=== PATIENT | male | born 1955 | race Caucasian/White ===

== ENCOUNTER 2023-10-12 13:18 | Observation (INO) | payer MEDICARE, OTHER, SELFPAY ==
[2023-10-12] VITALS (14 sets, daily range): BP systolic 119–163; BP diastolic 55–105; PULSE 64–89; BMI 21.3
--- NOTE | 2023-10-12 08:38 | ED.GENMED ---
History of Present Illness
General
Chief Complaint: Fainting/Passed Out
Source: patient
Exam Limitations: none
Time Seen by Provider: 10/12/23 07:53
Nursing documentation reviewed up to this point in time: agreed with
Travel History
Have you had any contact with someone who has COVID-19?: No
Do you have any symptoms of coronavirus? Fever > 100 degrees, chills, cough, shortness of breath, sore throat, loss of taste or smell, muscle aches, or headache?: No
History of Present Illness
History of Present Illness:
68 yr old male with past medical history of prostate cancer kidney stones hypertension, occipital CVA presents to the ER for evaluation. Patient reports he is coming to the ER today because he has a history of passing out. He has had intermittent
issues of passing out for the past 6 weeks. He reports he could be standing up or sitting down but continues to have intermittent episodes. He does feel lightheaded prior to episodes and is aware he is going to pass out.
He last passed out last week.
He denies any recent fever or chills. Denies any black or dark stool. He denies any nausea vomiting.
He denies any associated chest pain but does feel short of breath with exertion. He denies any lower extremity swelling prior history of DVT PE.
Past History
Past History
ED Past Medical History: Cancer (Prostate), Psychiatric (PTSD) and Other (Kidney stones)
ED Past Surgical History: Urological (Prostatectomy)
Social History
Tobacco: Former smoker
Alcohol: Occasional
Personal:
Living: with family
Employment: Employed
Family History
Family History: Other (Noncontributory)
Review of Systems
Review of Systems
Allergies reviewed?: Yes
Other source history: family
All Other Systems: ROS reviewed and negative except as documented in HPI and ROS
Constitutional: Reports fatigue
EENT: Reports no symptoms
Respiratory: Reports no symptoms
Cardiac: Reports syncope; Denies chest pain or diaphoresis
ABD/GI: Reports no symptoms; Denies abdominal pain, nausea or vomiting
: Reports no symptoms
Musculoskeletal: Reports no symptoms
Neurological: Reports no symptoms; Denies dizzy, headache or numbness
Hematologic/Lymphatic: Reports no symptoms
Psychiatric: Reports no symptoms
Phy Exam
General Physical Exam
General Presentation: no apparent distress
General age: appears stated age
General Skin: warm and dry
General Habitus: normal
General Mental: alert
General Hydration: appears well hydrated
Cardiovascular Exam
Cardiovascular Exam: regular rate/rhythm, no murmur and normal peripheral pulses
Pulmonary Exam
Pulmonary Exam: lungs clear and no respiratory distress
Neurological Exam
Neurological Exam: alert and oriented x3
Musculoskeletal Exam
Musculoskeletal Exam: full ROM
Skin Exam
Skin Exam: normal color and warm/dry
Psychiatric Exam
Psychiatric Exam: normal mood/affect
Course
Orders/Labs/Results
Orders:
Orders
10/12/23 07:47
Electrocardiogram (*1) Urgent
Reason for Study: Syncope
EKG- Treatment ONCE
10/12/23 08:43
IV Insert/Care/Rem.- Treatment PRN
10/12/23 08:44
Cardiac Monitoring- Treatment ONCE
CR Chest - 2 Views Urgent
Comment:
Reason For Exam: syncope
10/12/23 08:48
Complete Blood Count/With Diff Urgent
Comprehensive Metabolic Panel Urgent
10/12/23 10:30
Orthostatic VS- Treatment ONCE
Abnormal Lab Results
10/12/23
08:48
RBC 3.88 L 10^6/uL
(4.70-6.10)
Hgb 12.9 L g/dL
(13.0-18.0)
Hct 37.3 L %
(39.0-52.0)
MCV 96.1 H fL
(80.0-94.0)
MCH 33.2 H pg
(27.0-31.0)
Absolute Lymphs (auto) 0.8 L 10^3/uL
(1.2-3.4)
Absolute Monos (auto) 0.7 H 10^3/uL
(0.1-0.6)
Lymphocytes % 14.0 L %
(20.5-51.1)
Monocytes % 12.3 H %
(1.7-9.3)
Chloride 109 H mmol/L
(98-107)
Creatinine 0.6 L mg/dL
(0.7-1.3)
Glucose 62 L mg/dl
(70-99)
Total Protein 5.9 L g/dl
(6.3-8.2)
10/12/23 08:48
10/12/23 08:48
Vital Signs
Initial and Last Documented VS:
Initial Vital Signs
Temp Pulse Resp BP Pulse Ox
98.1 F 81 16 143/91 99
10/12/23 07:44 10/12/23 07:44 10/12/23 07:44 10/12/23 07:44 10/12/23 07:44
Last Documented Vital Signs
Temp Pulse Resp BP Pulse Ox
98.1 F 68 13 140/74 99
10/12/23 07:44 10/12/23 09:45 10/12/23 09:30 10/12/23 09:11 10/12/23 07:44
Body Work Auto Trimmer consulted with Physician
Body Work Auto Trimmer consulted with physician?: Yes
Name of Physician Consulted: Lawrence
MDM/Problems Addressed
Differential Diagnosis Includes:
not limited to: anemia; syncope , arrhythmia less likely PE, possible CHF
MDM/Problems Addressed:
Patient is a 68-year-old male who presents with intermittent episodes of syncope for the past month. He does feel very fatigued and has had shortness of breath with exertion. Patient presents awake alert no acute distress he is asymptomatic now no
shortness of breath denies any lightheadedness. He has normal sinus rhythm nontachypneic nontachycardic nonhypoxic with normal white count. Patient appears pale however hemoglobin stable at 12.9, unremarkable electrolytes. nml chest
Patient had recent echo September 26 which showed normal LV size and systolic function ejection fraction of 60%.
Will admit for continued workup for syncope and dyspnea.
Chronic conditions affecting care:
Prostate cancer history of CVA
*Pulse Oximetry
Patient hypoxic: no
*EKG
Interpreted by ED Provider?: Yes
Interpretation: normal
Comparison EKG: no changes
Heart Rate: 75
Rate: normal
Rhythm: sinus
Ischemia: no ischemia
*Critical Care Note
Total Time (30-74mins, 75-104mins- exclusive of procedures): Not Applicable
ED Attending Note
-
Portions of this chart may have been created with voice recognition software.� Occasional wrong word or��sound alike� substitutions may have occurred due to the inherent limitations of voice recognition software.
Discharge Plan
Departure
Patient Disposition: Admit
Date of Disposition: 10/12/23
Time of Disposition: 11:21
Presentation/result/management discussed w/ accepting MD/DO: Hospitalist
Patient with high blood pressure during this ER visit?: Yes
Condition: Fair
Covid-19: Not Applicable
Discharge Problem:
Syncope, dyspnea
Prescriptions:
No Action
alprazolam 0.25 MG tablet
0.25 mg PO HS
aspirin 81 MG tablet,chewable
81 mg PO DAILY 0RF
meloxicam 15 MG tablet
15 mg PO DAILY
tamsulosin 0.4 MG capsule
0.4 mg PO DAILY Qty: 7 0RF
methen-m.blue-s.ygjq-bxvfj-hno [Uribel] 1 EACH capsule
1 cap PO QIDPRN PRN (Reason: urinary discomfort) Qty: 20 0RF
Referrals:
UNKNOWN - PT DOES,NOT KNOW [Family Provider] -
Interventions
Interventions:
*Risk Screen - Suicide Last Done: 10/12/23 09:46
*General Assessment Last Done: 10/12/23 09:46
*Neglect/Abuse Screening Last Done: 10/12/23 09:46
ED- Fall Risk Assessment Last Done: 10/12/23 10:05
*ED COVID-19 Vaccine History Last Done: 10/12/23 07:44
ED- Cardiac Assessment Last Done: 10/12/23 09:46
ED- Neurological Assessment Last Done: 10/12/23 09:46
[2023-10-12 08:56] LABS: % Basophils 0.7 % (0-2); % Immature Granulocytes 0.4 % (0-0.5); % Monocytes 12.3 % (1.7-9.3); % Neutrophils 69.6 % (42.2-75.2); Absolute Eosinophils 0.2 10^3/uL (0-0.7); Absolute Lymphocytes 0.8 10^3/uL (1.2-3.4); Absolute Monocytes 0.7 10^3/uL (0.1-0.6); Hematocrit 37.3 % (39.0-52.0); Hemoglobin 12.9 g/dL (13.0-18.0); Mean Corp Hgb Conc. 34.6 g/dL (33.0-37.0); Mean Corpuscular Hgb 33.2 pg (27.0-31.0); Mean Corpuscular Volume 96.1 fL (80.0-94.0); Mean Platelet Volume 9.2 fL (7.4-10.4); Nucleated Red Blood Cells % 0 % (-); Platelet Count 176 10^3/uL (130-400); Red Blood Cell Count 3.88 10^6/uL (4.70-6.10); Red Cell Dist. Width 13.2 % (11.5-14.5); White Blood Cell Count 5.7 10^3/uL (4.8-10.8)
[2023-10-12 09:09] LABS: ALT (SGPT) 32 U/L (0-50); AST (SGOT) 26 U/L (17-59); Albumin 3.8 g/dl (3.5-5.0); Alkaline Phosphatase 63 U/L (38-126); Blood Urea Nitrogen 15 mg/dl (9-20); Calcium 8.4 mg/dl (8.4-10.2); Carbon Dioxide 28 mmol/L (22-30); Chloride 109 mmol/L (98-107); Glucose 62 mg/dl (70-99); Potassium 4.3 mmol/L (3.5-5.1); Sodium 139 mmol/L (135-145); Total Bilirubin 0.5 mg/dl (0.2-1.3); Total Protein 5.9 g/dl (6.3-8.2); eGFR > 60.00
--- NOTE | 2023-10-12 11:41 | PHANOTE ---
10/12/2023, [facility], spoke to pt. to obtain their medication history. pt. states that they have not taken most of their meds. in roughly 2 weeks as they have not been feeling well.
--- NOTE | 2023-10-12 12:26 | HPS.HSE ---
Addendum entered and electronically signed by Do Teixeira MD 10/12/23 13:41:
68-year-old male who is a poor historian presented to the ER with syncopal events. Patient states that it has been going on for a year now since his well started. They recently stopped his Flomax 3 weeks ago hoping that this would fix it.
Patient stated that he still gets them. Patient describes them as hot flashes coming on and he goes presyncopal or syncopal. No one has ever described to him how this looked like. Patient states that he was almost always alone when this happens.
No chest pain or palpitations. Patient stopped taking aspirin states somebody instructed him to do so could not tell me who. He denies any positional changes. No incontinence,
CVS: S1-S2 normal, sm apex
Chest: CTA B/L
Abdomen: Soft, NT / Bowel sounds present
Extremities: No edema, normal pulses
ASSOCIATE APPLICATION DEVELOPER: Non focal exam
#Recurrent Syncope possibly related to Orthostatic Hypotension though ortho BPs are borderline
-Monitor orthostatic vital signs - -Encourage use of compression stockings
-Evaluate for other possibly causes including PE and arrhythmia, EEG
-Consult Cardiology to interrogate Linq monitor and to commend on Syncope ( Not sure if still working over 3 years old )
-Consider Brain MRI is no other etiology identified
#Essential Hypertension
-Hold amlodipine
#Hyperlipidemia
-Continue atorvastatin
#Hx Multi-focal Left Occipital Lobe Infarcts
-Unclear when patient is no longer on antiplatelet therapy
-Resume low dose aspirin
#Prostate Cancer s/p Radical Prostatectomy
-Patient maintained on Lupron as outpatient
#Generalized Anxiety Disorder/ PTSD
-Continue Paxil and Xanax
#Ex Smoker
#DVT proph: SCDs
#Code Status: Full Code
Original Note:
Family Physician
-
Family Physician: NOT KNOW UNKNOWN - PT DOES
Chief Complaint
-
Recurrent Syncope
History of Present Illness
Patient is a 68 y/o male past medical history of CVA, hypertension, hyperlipidemia prostate cancer presents with recurrent syncopal episodes. Patient reports has been having syncopal episodes intermittently for quite some time. He reports his last
syncopal episode was 5 days ago. Patient admits to dizziness prior to episodes. He also reports occasional flushing prior to episodes. He denies shortness of breath or chest pain associated with this episodes. He notes they seem to occur more
frequently going from a sitting to standing position.
Medical History
Past Medical History
Past Medical History: Reports Other
Additional Past Medical History:
Essential Hypertension
Hyperlipidemia
Left Occipital Stroke
Prostate Cancer
Generalized Anxiety Disorder
Past Surgical History: Reports Other
Additional Past Surgical History:
Prostatectomy
Social History
Tobacco: Former Smoker (Patient reports he quit talking about a month ago)
Alcohol: None
Family History
Family History: Not pertinent
Allergies / Home Medications
Allergies reflects when Allergies were last updated in [employer].
Home Medications with original date entered in [employer]
Allergy/Medication List:
Allergies
Allergy/AdvReac Type Severity Reaction Status Date / Time
No Known Allergies Allergy Verified 10/12/23 07:46
Home Medications
acetaminophen 500 mg tablet (Tylenol Extra Strength) 500 mg PO DAILYPRN PRN mild pain 10/12/23
alprazolam 0.5 mg tablet 0.5 mg PO BID PRN anxiety 10/12/23
amlodipine 5 mg tablet 5 mg PO DAILY 10/12/23
atorvastatin 80 mg tablet 80 mg PO QPM 10/12/23
iron 1 tab PO DAILY 10/12/23
leuprolide acetate (6 month) 45 mg intramuscular syringe kit (Lupron Depot) 45 mg IM [id number] 10/12/23
meloxicam 15 mg tablet 15 mg PO DAILY 10/12/23
paroxetine HCl 20 mg tablet 20 mg PO DAILY 10/12/23
Review of Systems
-
A 12 point ROS was completed and negative except as noted: Yes
Constitutional: Denies Fever or Chills
Respiratory: Denies Cough or Trouble Breathing
Cardiac: Denies Chest Pain or Palpitations
Physical Exam
Vital Signs
Vital Signs
Temp Pulse Resp BP Pulse Ox
98.1 F 68 10 139/80 98
10/12/23 07:44 10/12/23 11:45 10/12/23 11:45 10/12/23 11:00 10/12/23 10:32
Physical Exam
General: Comfortable and Conversant
HEENT: Anicteric and Moist mucous membranes
Respiratory: Clear and Non Labored Respirations
Cardiac: S1/S2 and Regular Rhythm; No Murmur or Carotid Bruits
GI: Soft and Non Distended
Rectal: Deferred by Provider
Musculoskeletal: No Clubbing, No Cyanosis and No Edema
Skin: Warm and Dry
Neuro: Awake, Alert and Nonfocal/grossly intact
Laboratory Results
-
10/12/23 08:48
10/12/23 08:48
Laboratory Results
Total Bilirubin 0.5 mg/dl (0.2-1.3) 10/12/23 08:48
AST 26 U/L (17-59) 10/12/23 08:48
ALT 32 U/L (0-50) 10/12/23 08:48
Alkaline Phosphatase 63 U/L (38-126) 10/12/23 08:48
Carotid Ultrasound September 15, 2023: Less than 50% internal carotid artery stenosis bilaterally
Echo September 26, 2023: Normal left ventricular size and systolic function. Mild concentric left trickle hypertrophy. EF 60%. Normal diastolic function. Trace mitral regurgitation
Data Reviewed
-
Lab Data: Labs Reviewed by me
Old Records: Reviewed
Impression/Plan
-
Recurrent Syncope possibly related to Orthostatic Hypotension though BPs are borderline
-Monitor orthostatic vital signs - -Encourage use of compression stockings
-Evaluate for other possibly causes including PE and arrhythmia
-Consult Cardiology to interrogate Linq monitor
-Consider Brain MRI is no other etiology identified
Essential Hypertension
-Hold amlodipine
Hyperlipidemia
-Continue atorvastatin
Hx Multi-focal Left Occipital Lobe Infarcts
-Unclear when patient is no longer on antiplatelet therapy
-Resume low dose aspirin
Prostate Cancer s/p Radical Prostatectomy
-Patient maintained on Lupron as outpatient
Generalized Anxiety Disorder
-Continue Paxil and Xanax
DVT proph: SCDs
Code Status: Full Code
[2023-10-12 12:36] LABS: NT-proBNP 178 pg/ml; Troponin I < 0.012 ng/ml
--- NOTE | 2023-10-12 13:37 | CON.CAR ---
Addendum entered and electronically signed by Raheem Levin DO 10/12/23 17:00:
I saw and examined the patient.
The Referral Specialist's note was reviewed and I agree with the note.
Comment:
Plan:
Recurrent syncope with negative LINQ, no events, arrhythmias or heart block.
Pt was orthostatic in ER with baseline HTN.
Cont to check orthostatics. Amlodipine stopped but may need lower dose for baseline hypertension.
Most episodes have occurred since Lupron. He states he has not be recently taking the Flomax
Recent echo reviewed and would not repeat.
Original Note:
Consultation
Consultation Request
Date/Time Consultation Requested: 10/12/23
Date/Time Consultation Performed: 10/12/23
Requesting Provider: Dr. Teixeira
Performing Provider: Dr. Levin
Reason for Consultation: Syncope
Medical History
-
History of Present Illness:
Patient came to [facility] after an episode of syncope last week, cardiology consulted. Patient is originally from [place] and can speak/write 7 different languages. 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 Patient had an admission to in 2020 for COVID and HTN emergency and it was discovered that he had bihemispheric stroke and he was referred for an echo and a Linq monitor. Patient's Linq checks have always been
unrearkable and no evidence of atrial arrhythmia. Then patient had a syncopal episode while working in a [employer] shop 04/2023. Patient was evaluated in [facility] and his Linq was checked, but no events. Patient was not orthostatic by VS at that time and he
was discharged to home. Patient was seen by Oncology around that time and told that he was going to start Lupron for a rising PSA and he mother became ill. He was then seen in the cardiology office 07/01/23 and was recommended to take his Flomax at
night. Patient's mother 07/21/23 and he says he was overwhelmed. Patient was then evaluated at [facility] 08/26/23 for near syncope and he was given a note from the PCP to stay out of work for 1 week to recover, but patient says he
ended up staying out of work until 10/06/23. Patient just started back to work last week and then had an episode of syncope on . He then saw his PCP and was told to go to ER if he has recurrent syncope. Patient says that he did not
have additional syncope, but decided to come to ER today.
PMH:
HTN
s/p Linq monitor implanted 02/18/21
h/o prostate cancer
radical prostatectomy and XRT in 2005, recurrence treated with resection and radiation 2021, now on Lupron q6 months
h/o gastric bypass surgery
h/o [place] radiation exposure
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
HTN
PTSD
Past Medical History
Past Surgical History: Orthopedic, Urological (prostatectomy 2005, robotic resection of pelvic retroperitoneal mass 11/13/21) and Other (gastric bypass)
Social History
Tobacco: Smoker (started smoking 2012, says he quit 3 months ago)
Alcohol: None
Drug: None
Personal:
Living: Alone
Employment: Employed
Family History
Family History: Cancer
Allergies / Home Medications
Allergy/AdvReac Type Severity Reaction Status Date / Time
No Known Allergies Allergy Verified 10/12/23 07:46
Medication Instructions Recorded Confirmed Type
acetaminophen 500 mg tablet 500 mg PO DAILYPRN PRN mild pain 10/12/23 10/12/23 History
(Tylenol Extra Strength)
alprazolam 0.5 mg tablet 0.5 mg PO BID PRN anxiety 10/12/23 10/12/23 History
amlodipine 5 mg tablet 5 mg PO DAILY 10/12/23 10/12/23 History
atorvastatin 80 mg tablet 80 mg PO QPM 10/12/23 10/12/23 History
iron 1 tab PO DAILY 10/12/23 10/12/23 History
leuprolide acetate (6 month) 45 mg 45 mg IM [id number] 10/12/23 10/12/23 History
intramuscular syringe kit (Lupron
Depot)
meloxicam 15 mg tablet 15 mg PO DAILY 10/12/23 10/12/23 History
paroxetine HCl 20 mg tablet 20 mg PO DAILY 10/12/23 10/12/23 History
Review of Systems
-
History Source: Patient
All other systems: Negative unless noted
Physical Exam
Vital Signs
Temp Pulse Resp BP Pulse Ox
98.1 F 74 23 147/105 98
10/12/23 07:44 10/12/23 13:00 10/12/23 13:00 10/12/23 13:00 10/12/23 10:32
GEN: NAD. AAOx3
HEENT: EOMI, MMM
LUNGS: CTA B/L, no wheezes or rales
CV: Reg, S1/S2, no murmur
ABD: soft, BS+, NT, ND
EXT: No clubbing, cyanosis, lesions or edema B/L
NEURO: Gross non-focal
SKIN: Warm, dry and pink. No rash
Lab Results
10/12/23 08:48
10/12/23 08:48
Troponin I < 0.012 ng/ml 10/12/23 11:58
Twb-A-Amufbjjwrgn Pept 178 pg/ml 10/12/23 11:58
Impression / Plan
-
PCP: Dr. Khanna
Cardiology: Dr. Barron
Oncology: Dr. Dominique
Impression:
Syncope
Orthostasis
HTN
Weight loss
s/p Linq monitor implanted 02/18/21
h/o prostate cancer
radical prostatectomy and XRT in 2005, recurrence treated with resection and radiation 2021, now on Lupron q6 months
h/o gastric bypass surgery
h/o [place] radiation exposure
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
HTN
PTSD
Echo 09/26/23: EF 60%, no WMA, no significant valve disease
Plan:
-Patient came to [facility] after an episode of syncope last week, cardiology consulted. Patient is originally from [place] and can speak/write 7 different languages. 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 Patient had an admission to in 2020 for COVID and HTN emergency and it was discovered that he had bihemispheric stroke and he was referred for an echo and a Linq monitor. Patient's Linq checks have always been
unrearkable and no evidence of atrial arrhythmia. Then patient had a syncopal episode while working in a [employer] shop 04/2023. Patient was evaluated in [facility] and his Linq was checked, but no events. Patient was not orthostatic by VS at that time and he
was discharged to home. Patient was seen by Oncology around that time and told that he was going to start Lupron for a rising PSA and he mother became ill. He was then seen in the cardiology office 07/01/23 and was recommended to take his Flomax at
night. Patient's mother 07/21/23 and he says he was overwhelmed. Patient was then evaluated at [facility] 08/26/23 for near syncope and he was given a note from the PCP to stay out of work for 1 week to recover, but patient says he
ended up staying out of work until 10/06/23. Patient just started back to work last week and then had an episode of syncope on . He then saw his PCP and was told to go to ER if he has recurrent syncope. Patient says that he did not
have additional syncope, but decided to come to ER today.
-Patient with recurrent near syncope and syncope. He had syncope with collapse at work 05/05/23, near syncope evaluated at an outside hospital 08/26/23 and near syncope 10/08/23. None of his syncope events correlated with arrhythmia or bradycardic
event on Linq monitor.
-Linq monitor checked by me in the ER and personally reviewed the report 10/12/23, no arrhythmic or bradycardic events.
-Patient is orthostatic in the ER, but he also has baseline HTN. Will follow BP and recommend conservative measures for now including increased hydration and TEDS. If patient fails to respond then consider adding midodrine, but would have concern
for supine HTN.
-Echo unremarkable 09/26/23 and would not repeat.
-Patient reports that he stopped taking Flomax about a month ago and initially this seemed to help, but now with recurrent episodes. Based on timeline, his syncope events started around the time of Lupron injection.
[2023-10-12] MEDS: LIPITOR 80 MG PO (18:13)
[2023-10-12] MEDS: MELATONIN 5 MG PO (21:04)
[2023-10-13 03:30] VITALS: BP 145/70
[2023-10-13 06:00] VITALS: BMI 21.0
[2023-10-13 07:00] VITALS: BP 169/86
[2023-10-13 08:03] LABS: Hematocrit 38.7 % (39.0-52.0); Hemoglobin 13.7 g/dL (13.0-18.0); Mean Corp Hgb Conc. 35.4 g/dL (33.0-37.0); Mean Corpuscular Hgb 33.2 pg (27.0-31.0); Mean Corpuscular Volume 93.7 fL (80.0-94.0); Mean Platelet Volume 9.4 fL (7.4-10.4); Platelet Count 209 10^3/uL (130-400); Red Blood Cell Count 4.13 10^6/uL (4.70-6.10); Red Cell Dist. Width 12.9 % (11.5-14.5); White Blood Cell Count 7.1 10^3/uL (4.8-10.8)
[2023-10-13 08:09] LABS: Glucose - Point of Care 238 mg/dl (70-99)
[2023-10-13] MEDS: LOW STRENGTH ASPIRIN 81 MG PO (08:11)
[2023-10-13] MEDS: PAXIL 20 MG PO (08:11)
[2023-10-13 08:49] LABS: Blood Urea Nitrogen 15 mg/dl (9-20); Calcium 9.2 mg/dl (8.4-10.2); Carbon Dioxide 27 mmol/L (22-30); Chloride 103 mmol/L (98-107); Estimated Creatinine Clearance 123 ml/min; Glucose 156 mg/dl (70-99); Magnesium 1.9 mg/dl (1.6-2.3); Potassium 3.8 mmol/L (3.5-5.1); Sodium 137 mmol/L (135-145); eGFR > 60.00
[2023-10-13 09:17] LABS: TSH Reflex To Free T4 0.38 uIU/ml (0.47-4.68)
[2023-10-13 09:35] LABS: Hepatitis C Antibody Negative (Negative)
[2023-10-13 09:46] LABS: Free T4 0.77 ng/dl (0.78-2.19)
[2023-10-13 11:00] VITALS: BP 150/91; BP 157/84; BP 163/96; PULSE 70; PULSE 75; PULSE 78
--- NOTE | 2023-10-13 12:41 | EEG.RPT ---
Electroencephalogram Report
Recording
Date of EE10/13/23
Type of EEG: Routine
Length of EEG recordin minutes
Done with Video Recording: Yes
Patient Status: Inpatient
Recording Conditions: Awake and Drowsy
Hyperventilation Performed: No
Photic Stimulation Performed: Yes
Hand Dominance: Unknown
Report
LESS THAN 1 HOUR EEG REPORT
METHODS:
A 21 channel digitized electroencephalogram (EEG) was performed using the 10/20 international system of electrode placement and one-lead of ECG recorded. Duration was 28 minutes.
ELECTROENCEPHALOGRAPHER IMPRESSION(S):
Quality of study
Good
Background
There was an unremarkable anterior-posterior voltage gradient of alpha frequency.
Normal posterior dominant rhythm of 9-10 hz seen which attenuates with eye opening
There were no significant asymmetries of background activity noted.
Sleep
Drowsiness present
Hyperventilation
Not performed
Photic Stimulation
No activation
ECG
Normal sinus rhythm
LESS THAN 1 HOUR EEG INTERPRETATION:
Unremarkable EEG for age
CLINICAL CORRELATION:
A normal EEG does not rule out a diagnosis of epilepsy.� If clinical suspicion for seizure persists, a prolonged recording may be warranted.
Clinical correlation is advised.
[2023-10-13] MEDS: ZOFRAN 4 MG IV (13:07)
[2023-10-13 15:00] VITALS: BP 164/86
--- NOTE | 2023-10-13 15:19 | CM ---
Addendum entered by Stephenie Walker 10/13/23 15:21:
Pt is OBS- LEMA verbally reviewed
Copy provided
Original Note:
CM met with pt bedside
Pt resides alone in a [place] with 2STE
Pt is independent with his ADLs
Denies use of DMEs and hx with VN/SNF
PCP- unknown name, Lisha is in the name
Rx- [facility]
Discharge Disposition- home, no needs anticipated
--- NOTE | 2023-10-13 16:09 | W.PN.HOSP.TC ---
Today's Communication/Plan
-
PPI
OT eval
MRI brain
Assessment / Plan
Assessment / Plan
68-year-old male who is a poor historian presented to the ER with syncopal events.� Patient states that it has been going on for a year now since his well started.� They recently stopped his Flomax 3 weeks ago hoping that this would fix it.�
Patient stated that he still gets them.� Patient describes them as hot flashes coming on and he goes presyncopal or syncopal.� No one has ever described to him how this looked like.� Patient states that he was almost always alone when this happens.�
No chest pain or palpitations.� Patient stopped taking aspirin states somebody instructed him to do so could not tell me who.� He denies any positional changes.� No incontinence,
CVS: S1-S2 normal, sm apex
Chest: CTA B/L
Abdomen: Soft, NT / Bowel sounds present
Extremities: No edema, normal pulses
DIAMOND POLISHER: Non focal exam
#Nausea- Add a PPI
PRN Zofran
#Recurrent Syncope
-No PE
-EEG Neg
-Tele No arrhythmias
-Check an MRI
-Cards eval appreciated
-He also says it has been since he was started on Lupron.
#Abnormal TFTS- Repeat as OP in 4 weeks
#Essential Hypertension
-Restart amlodipine
#Hyperlipidemia
-Continue atorvastatin
#Hx Multi-focal Left Occipital Lobe Infarcts
-Unclear when patient is no longer on antiplatelet therapy
-Restarted low dose aspirin
#Prostate Cancer s/p Radical Prostatectomy
-Patient maintained on Lupron as outpatient
#Generalized Anxiety Disorder/ PTSD
-Continue Paxil and Xanax
#Ex Smoker
#DVT proph: SCDs
#Code Status: Full Code
Anticipated Discharge: Within 24 hours
Subjective/Interval History
-
Date of Service: October 13, 2023
Objective Data
-
Labs:
Laboratory Results
10/13/23
07:03
WBC 7.1
Hgb 13.7
Hct 38.7 L
Plt Count 209
Sodium 137
Potassium 3.8
Chloride 103
Carbon Dioxide 27
BUN 15
Creatinine 0.5 L
Glucose 156 H
Calcium 9.2
Vital Signs:
Vital Signs
Temp Pulse Resp BP Pulse Ox
98.0 F 71 18 164/86 98
10/13/23 15:00 10/13/23 15:00 10/13/23 15:00 10/13/23 15:00 10/13/23 15:00
I&O
10/12/23 10/13/23 10/14/23
06:59 06:59 06:59
Intake Total 720 / 720
Balance 720 / 720
--- NOTE | 2023-10-13 17:17 | W.PN.CARDCBS ---
Addendum entered and electronically signed by Rashid Velasquez MD 10/13/23 17:58:
I saw and examined the patient.
The Agricultural Commodities Inspector's note was reviewed and I agree with the note.
Comment:
GEN: No distress, awake, Ox3
HEENT: supple, anicteric, mmm
LUNGS: CTA, no wheezes/rales
CV: Reg, S1/S2, / syst LSB, no gallop
ABD: soft, BS+, NT/ND
EXT: No edema
NEURO: Gross non-focal
SKIN: No rash
Plan:
Still with symptoms of lightheadedness. Await MRI of the brain.
Echo and monitoring has been normal.
Continue to treat orthostasis.
Recommend increase activity.
Original Note:
Today's Communication / Plan
-
MRI brain ordered
No longer orthostatic, but still lightheaded
Impression / Plan
-
PCP: Dr. Khanna
Cardiology: Dr. Barron
Oncology: Dr. Dominique
Impression:
Syncope
Orthostasis
HTN
Weight loss
s/p Linq monitor implanted 02/18/21
h/o prostate cancer
radical prostatectomy and XRT in 2005, recurrence treated with resection and radiation 2021, now on Lupron q6 months
h/o gastric bypass surgery
h/o [place] radiation exposure
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
HTN
PTSD
Echo 09/26/23: EF 60%, no WMA, no significant valve disease
Plan:
-CT was negative for PE. EEG unremarkable. MRI brain planned
-Patient was orthostatic by VS in ER 10/12/23, but not orthostatic by VS 10/13/23. He has been recommended to increase PO intake
-Patient with recurrent near syncope and syncope. He had syncope with collapse at work 05/05/23, near syncope evaluated at an outside hospital 08/26/23 and near syncope 10/08/23. None of his syncope events correlated with arrhythmia or bradycardic
event on Linq monitor.
-Linq monitor checked 10/12/23, no arrhythmic or bradycardic events.
-Echo unremarkable 09/26/23
-Amlodipine is on hold, but no symptomatic difference in that he is still near syncopal and no longer orthostatic, this does not correlate. He is now HTN. Consider restarting amlodipine
HPI: Patient came to [facility] after an episode of syncope last week, cardiology consulted. Patient is originally from [place] and can speak/write 7 different languages. 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 Patient had an admission to in 2020 for COVID and HTN emergency and it was discovered that he had bihemispheric stroke and he was referred for an echo and a Linq monitor. Patient's Linq checks have always been
unrearkable and no evidence of atrial arrhythmia. 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 Patient was evaluated in [facility] and his Linq was checked, but no events. Patient was not orthostatic by VS at that time and he
was discharged to home. Patient was seen by Oncology around that time and told that he was going to start Lupron for a rising PSA and he mother became ill. He was then seen in the cardiology office 07/01/23 and was recommended to take his Flomax at
night. Patient's mother 07/21/23 and he says he was overwhelmed. Patient was then evaluated at [facility] 08/26/23 for near syncope and he was given a note from the PCP to stay out of work for 1 week to recover, but patient says he
ended up staying out of work until 10/06/23. Patient just started back to work last week and then had an episode of syncope on . He then saw his PCP and was told to go to ER if he has recurrent syncope. Patient says that he did not
have additional syncope, but decided to come to ER today.
Progress Note - Forest Ecology Professor
Subjective
Date of Service: October 13, 2023
Still lightheaded
Objective
Labs:
10/13/23 07:03
10/13/23 07:03
Labs
Hgb 13.7 g/dL (13.0-18.0) 10/13/23 07:03
Hct 38.7 % (39.0-52.0) L 10/13/23 07:03
Plt Count 209 10^3/uL (130-400) 10/13/23 07:03
Sodium 137 mmol/L (135-145) 10/13/23 07:03
Potassium 3.8 mmol/L (3.5-5.1) 10/13/23 07:03
BUN 15 mg/dl (9-20) 10/13/23 07:03
Creatinine 0.5 mg/dL (0.7-1.3) L 10/13/23 07:03
Glucose 156 mg/dl (70-99) H 10/13/23 07:03
Troponins
10/12/23
11:58
Troponin I < 0.012
Vital Signs and I&O:
Vital Signs
Temp Pulse Resp BP Pulse Ox
98.0 F 71 18 164/86 98
10/13/23 15:00 10/13/23 15:00 10/13/23 15:00 10/13/23 15:00 10/13/23 15:00
Vital Signs
Temp Pulse Resp BP Pulse Ox
98.0 F 71 18 164/86 98
10/13/23 15:00 10/13/23 15:00 10/13/23 15:00 10/13/23 15:00 10/13/23 15:00
Intake & Output
10/11/23 10/12/23 10/13/2310/14/24
06:59 06:59 06:59 06:59
Intake Total 720 / 720
Balance 720 / 720
Physical Exam
Physical Exam
GEN: NAD. AAOx3
HEENT: EOMI, MMM
LUNGS: CTA B/L, no wheezes or rales
CV: Reg, S1/S2, no murmur
ABD: soft, BS+, NT, ND
EXT: No clubbing, cyanosis, lesions or edema B/L
NEURO: Gross non-focal
SKIN: Warm, dry and pink. No rash
[2023-10-13] MEDS: LIPITOR 80 MG PO (17:19)
[2023-10-13] MEDS: PROTONIX IV 40 MG IV (17:20)
[2023-10-13] MEDS: NSS (PRESERVATIVE FREE) 10 ML IV (17:20)
[2023-10-13] MEDS: TYLENOL 650 MG PO (17:23)
[2023-10-13 17:54] LABS: Vitamin B12 227 pg/ml (239-931)
[2023-10-13 19:59] VITALS: BP 159/98; BP 162/91; BP 163/82; PULSE 70; PULSE 77; PULSE 81
[2023-10-13] MEDS: MELATONIN 5 MG PO (21:20)
[2023-10-13] MEDS: NORVASC 5 MG PO (21:20)
[2023-10-13 22:52] VITALS: BP 155/73
[2023-10-14 03:13] VITALS: BP 164/78
[2023-10-14 06:00] VITALS: BMI 20.5
[2023-10-14 07:00] VITALS: BP 156/92
[2023-10-14] MEDS: PROTONIX 40 MG PO (08:00)
[2023-10-14] MEDS: PAXIL 20 MG PO (08:00)
[2023-10-14] MEDS: LOW STRENGTH ASPIRIN 81 MG PO (08:00)
[2023-10-14 09:25] VITALS: BP 150/86; BP 159/96; PULSE 77
[2023-10-14 11:00] VITALS: BP 142/86; BP 153/82; BP 160/95; PULSE 69; PULSE 70; PULSE 80
--- NOTE | 2023-10-14 13:24 | W.PN.HOSP.TC ---
Addendum entered and electronically signed by Do Teixeira MD 10/14/23 14:38:
CT noted
Will discharge
Original Note:
Today's Communication/Plan
-
Head CT
Discharge planning
Assessment / Plan
Assessment / Plan
68-year-old male who is a poor historian presented to the ER with syncopal events.� Patient states that it has been going on for a year now since his well started.� They recently stopped his Flomax 3 weeks ago hoping that this would fix it.�
Patient stated that he still gets them.� Patient describes them as hot flashes coming on and he goes presyncopal or syncopal.� No one has ever described to him how this looked like.� Patient states that he was almost always alone when this happens.�
No chest pain or palpitations.� Patient stopped taking aspirin states somebody instructed him to do so could not tell me who.� He denies any positional changes.� No incontinence,
CVS: S1-S2 normal, sm apex
Chest: CTA B/L
Abdomen: Soft, NT / Bowel sounds present
Extremities: No edema, normal pulses
WATERSIDE WORKER: Non focal exam
#Nausea- Resolved
PPI
#Recurrent Syncope
-No PE
-EEG Neg
-Tele No arrhythmias
-Patient could not undergo MRI today. Outpatient open MRI recommended
-Cards eval appreciated
-He also says it has been since he was started on Lupron.
-Will get further outpatient follow-up for syncopes
-He stated that he stopped driving and his sister has taking him.
#Abnormal TFTS- Repeat as OP in 4 weeks
#Essential Hypertension
-Restarted amlodipine
#Hyperlipidemia
-Continue atorvastatin
#Hx Multi-focal Left Occipital Lobe Infarcts
-Unclear when patient is no longer on antiplatelet therapy
-Restarted low dose aspirin
#Prostate Cancer s/p Radical Prostatectomy
-Patient maintained on Lupron as outpatient
#Generalized Anxiety Disorder/ PTSD
-Continue Paxil and Xanax
#Ex Smoker
#DVT proph: SCDs
#Code Status: Full Code
Discussed with nursing
Discussed with patient's sister on the phone in detail and updated.
I have given him a note to stay off of work for a week so he can complete the workup including MRI and follow-up with Dr. Dominique
Anticipated Discharge: Today
Subjective/Interval History
-
Date of Service: October 14, 2023
Objective Data
-
Vital Signs:
Vital Signs
Temp Pulse Resp BP Pulse Ox
98.2 F 69 20 153/82 97
10/14/23 11:00 10/14/23 11:00 10/14/23 11:00 10/14/23 11:00 10/14/23 11:00
I&O
10/13/23 10/14/23 10/15/23
06:59 06:59 06:59
Intake Total 720 / 720 1320 / 1320
Output Total 1450 / 1450
Balance 720 / 720 -130 / -130
--- NOTE | 2023-10-14 14:38 | W.DS.TRANS ---
Addendum entered and electronically signed by Do Teixeira MD 10/14/23 14:42:
Dictation- [id number]
Original Note:
DC Summary - Stain Dipper
-
Discharge Instructions:
Discharge Diagnosis/Procedures Syncope, hypertension, high cholesterol, history
of stroke, prostate cancer, anxiety, PTSD
Diet As tolerated
Activity As tolerated
Driving Restrictions No driving
Instructions:
Stand-Alone Forms:
Changes to Home Medications: Yes
Discharge Medications:
DC Medications w/original date entered in [email or web address]
acetaminophen 500 mg tablet (Tylenol Extra Strength) 500 mg PO DAILYPRN PRN mild pain 10/12/23
alprazolam 0.5 mg tablet 0.5 mg PO BID PRN anxiety 10/12/23
atorvastatin 80 mg tablet 80 mg PO QPM High Cholesterol 10/12/23
iron 1 tab PO DAILY Supplement 10/12/23
leuprolide acetate (6 month) 45 mg intramuscular syringe kit (Lupron Depot) 45 mg IM [id number] Hormonal Agent 10/12/23
paroxetine HCl 20 mg tablet 20 mg PO DAILY Depression 10/12/23
amlodipine 5 mg tablet 5 mg PO HS Blood Pressure #0 tabs 10/14/23
aspirin 81 mg chewable tablet (Children's Aspirin) 81 mg PO DAILY Blood clot prevention/tx #0 tabs 10/14/23
pantoprazole 40 mg tablet,delayed release 40 mg PO DAILY Gastrointestinal issue #30 tabs 10/14/23
Home Medication Changes
new
aspirin 81 mg chewable tablet (Children's Aspirin) 81 mg PO DAILY Blood clot prevention/tx #0 tabs 10/14/23
pantoprazole 40 mg tablet,delayed release 40 mg PO DAILY Gastrointestinal issue #30 tabs 10/14/23
Pending Results: No
--- NOTE | 2023-10-14 14:53 | CM ---
Patient for d/c home today.
Plan: home no needs.
--- NOTE | 2023-10-14 16:04 | W.PN.CARDCBS ---
Today's Communication / Plan
-
Symptoms seem better. Continue to avoid dehydration and encourage p.o. intake.
Blood pressure is mildly elevated but acceptable.
Okay for discharge from cardiac standpoint.
Impression / Plan
-
PCP: Dr. Khanna
Cardiology: Dr. Barron
Oncology: Dr. Dominique
Impression:
Syncope
Orthostasis
HTN
Weight loss
s/p Linq monitor implanted 02/18/21
h/o prostate cancer
radical prostatectomy and XRT in 2005, recurrence treated with resection and radiation 2021, now on Lupron q6 months
h/o gastric bypass surgery
h/o [place] radiation exposure
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
HTN
PTSD
Echo 09/26/23: EF 60%, no WMA, no significant valve disease
Plan:
-CT was negative for PE. EEG unremarkable.
-Patient was orthostatic by VS in ER 10/12/23, but not orthostatic by VS 10/13/23. He has been recommended to increase PO intake
-Patient with recurrent near syncope and syncope. He had syncope with collapse at work 05/05/23, near syncope evaluated at an outside hospital 08/26/23 and near syncope 10/08/23. None of his syncope events correlated with arrhythmia or bradycardic
event on Linq monitor.
-Linq monitor checked 10/12/23, no arrhythmic or bradycardic events.
-Echo unremarkable 09/26/23
-Amlodipine is on hold, but no symptomatic difference in that he is still near syncopal and no longer orthostatic, this does not correlate. He is now HTN. Consider restarting amlodipine
HPI: Patient came to [facility] after an episode of syncope last week, cardiology consulted. Patient is originally from [place] and can speak/write 7 different languages. 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 Patient had an admission to in 2020 for COVID and HTN emergency and it was discovered that he had bihemispheric stroke and he was referred for an echo and a Linq monitor. Patient's Linq checks have always been
unrearkable and no evidence of atrial arrhythmia. 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 Patient was evaluated in [facility] and his Linq was checked, but no events. Patient was not orthostatic by VS at that time and he
was discharged to home. Patient was seen by Oncology around that time and told that he was going to start Lupron for a rising PSA and he mother became ill. He was then seen in the cardiology office 07/01/23 and was recommended to take his Flomax at
night. Patient's mother 07/21/23 and he says he was overwhelmed. Patient was then evaluated at [facility] 08/26/23 for near syncope and he was given a note from the PCP to stay out of work for 1 week to recover, but patient says he
ended up staying out of work until 10/06/23. Patient just started back to work last week and then had an episode of syncope on . He then saw his PCP and was told to go to ER if he has recurrent syncope. Patient says that he did not
have additional syncope, but decided to come to ER today.
Progress Note - Ammonia Refrigeration Worker
Subjective
Date of Service: October 14, 2023
Feels better and no further dizziness.
Objective
Labs:
10/13/23 07:03
10/13/23 07:03
Labs
Hgb 13.7 g/dL (13.0-18.0) 10/13/23 07:03
Hct 38.7 % (39.0-52.0) L 10/13/23 07:03
Plt Count 209 10^3/uL (130-400) 10/13/23 07:03
Sodium 137 mmol/L (135-145) 10/13/23 07:03
Potassium 3.8 mmol/L (3.5-5.1) 10/13/23 07:03
BUN 15 mg/dl (9-20) 10/13/23 07:03
Creatinine 0.5 mg/dL (0.7-1.3) L 10/13/23 07:03
Glucose 156 mg/dl (70-99) H 10/13/23 07:03
Troponins
10/12/23
11:58
Troponin I < 0.012
Vital Signs and I&O:
Vital Signs
Temp Pulse Resp BP Pulse Ox
98.2 F 69 20 153/82 97
10/14/23 11:00 10/14/23 11:00 10/14/23 11:00 10/14/23 11:00 10/14/23 11:00
Vital Signs
Temp Pulse Resp BP Pulse Ox
98.2 F 69 20 153/82 97
10/14/23 11:00 10/14/23 11:00 10/14/23 11:00 10/14/23 11:00 10/14/23 11:00
Intake & Output
10/12/23 10/13/23 10/14/23 10/15/23
06:59 06:59 06:59 06:59
Intake Total 720 / 720 1320 / 1320
Output Total 1450 / 1450
Balance 720 / 720 -130 / -130
Physical Exam
Physical Exam
GEN: No distress, awake, Ox3
HEENT: supple, anicteric, mmm
LUNGS: CTA, no wheezes/rales
CV: Reg, S1/S2, no murmur
ABD: soft, BS+, NT/ND
EXT: No edema
NEURO: Gross non-focal
SKIN: No rash
== END 2023-10-14 15:44 | disposition home or self-care (01) ==
LOC: 4 WEST ACU 13:18
PROVIDERS: Nurse Practitioner; Physician Assistant Medical; ADMITTING PHYSICIAN Hospitalist; CONSULT PHYSICIAN Nuclear Medicine Nuclear Cardiology; EMERGENCY PHYSICIAN Student in an Organized Health Care Education/Training Program
DX: R55 Syncope and collapse (principal); I10 Essential (primary) hypertension; R42 Dizziness and giddiness; F43.10 Post-traumatic stress disorder, unspecified; E78.5 Hyperlipidemia, unspecified; E78.00 Pure hypercholesterolemia, unspecified; R11.0 Nausea; F41.1 Generalized anxiety disorder; Z79.1 Long term (current) use of non-steroidal anti-inflammatories (NSAID); Z98.84 Bariatric surgery status; Z63.4 Disappearance and death of family member; Z87.891 Personal history of nicotine dependence; Z90.79 Acquired absence of other genital organ(s); Z86.73 Personal history of transient ischemic attack (TIA), and cerebral infarction without residual deficits; Z85.46 Personal history of malignant neoplasm of prostate; Z87.442 Personal history of urinary calculi; Z86.16 Personal history of COVID-19; Z92.3 Personal history of irradiation
CPT/HCPCS: 70030; 70450; 71046; 71275; 80048; 80053; 82607; 82962; 83036; 83735; 83880; 84439; 84443; 84484; 85025; 85027; 86803; 93005; 95816; 97165; 99285; G0378; Q9967

== ENCOUNTER → 2023-11-10 19:09 | Outpatient (REF) | payer MEDICARE, OTHER, SELFPAY | LOC: MRI 19:09 | PROVIDERS: ATTENDING PHYSICIAN Physician Assistant | DX: R55 Syncope and collapse (principal) | CPT/HCPCS: 70553; A9575 ==

== ENCOUNTER → 2024-05-27 15:49 | Outpatient (REF) | payer MEDICARE, OTHER, SELFPAY | LOC: RAD 15:49 | PROVIDERS: ATTENDING PHYSICIAN Nurse Practitioner | DX: R55 Syncope and collapse (principal); G89.29 Other chronic pain; R51.9 Headache, unspecified | CPT/HCPCS: 70030; 70553; A9575 ==

== ENCOUNTER → 2024-06-27 07:02 | Outpatient (REF) | payer OTHER, MEDICARE, SELFPAY | LOC: DHCBC/DCA 07:02 | PROVIDERS: ATTENDING PHYSICIAN Nurse Practitioner; FAMILY PHYSICIAN Nurse Practitioner | DX: R06.02 Shortness of breath (principal) | CPT/HCPCS: 78452; 93017; A9500; J2785 ==

== ENCOUNTER 2024-12-09 15:12 | Emergency (ER) | payer MEDICARE, OTHER, SELFPAY ==
[2024-12-09 15:17] VITALS: BP 146/83
[2024-12-09 15:23] LABS: Glucose - Point of Care 135 mg/dl (70-99)
[2024-12-09 15:25] VITALS: BMI 27.2
[2024-12-09 15:26] VITALS: BP 154/93
--- NOTE | 2024-12-09 15:41 | ED.CVA ---
History of Present Illness
General
Chief Complaint: CVA/TIA Symptoms
Source: patient and family (sister)
Time Seen by Provider: 12/09/24 15:34
Onset of Stroke Symptoms
Onset of symptoms known: Yes
Date of onset of symptoms: 12/09/24
History of Present Illness
History of Present Illness:
69-year-old male presents to the emergency room complaining of headache, intermittent left face droop and some generalized weakness perhaps worse on the left. Patient developed a headache 1 to 2 days ago. The weakness seems to wax and wane. No
clear time of onset though seems like things are worse today. Patient has a history of CVA in 2020. At that time he was COVID-positive. Patient does not take any anticoagulants or antiplatelet medications at this time. He denies any nausea or
vomiting. Patient does seem to have chronic headaches. He takes Emgality injections monthly. Patient also takes Qulipta.
Past History
Past History
ED Past Medical History: Cancer (Prostate), Psychiatric (PTSD) and Other (Kidney stones)
ED Past Surgical History: Urological (Prostatectomy)
Social History
Tobacco: Former smoker
Alcohol: Occasional
Personal:
Living: with family
Employment: Employed
Family History
Family History: Other (Noncontributory)
Phy Exam
Physical Exam
Physical Exam:
General: Awake, Alert, Oriented X3. Patient appears generally weak and somewhat somnolent
Vitals: Mildly hypertensive
Head: Atraumatic
Eyes: Pupils equal, EOMI
Throat: Airway intact, no exudates
Neck: Trachea midline
Lungs: Clear and equal b/l
Heart: Regular rate, no murmurs
Abd: Soft, Nontender, No pulsatile mass
Neuro: Cranial nerves intact, muscle strength equal bilaterally, cerebellar exam normal
Skin: Warm, dry, no rash
Extremities: pulses equal b/l, no edema
Course
Orders/Labs/Results
Orders:
Orders
12/09/24 15:36
CT HEAD STROKE ALERT W/o Cont Urgent
Comment:
Reason For Exam: headache
CT HEAD/NECK ANG STROKE ALERT Urgent
Comment:
Reason For Exam: headache
12/09/24 15:37
Cardiac Monitoring- Treatment ONCE
12/09/24 15:38
Electrocardiogram (*1) Stat
Reason for Study: Other
Other Reason for Exam: neuro symptoms
EKG- Treatment ONCE
12/09/24 15:56
Complete Blood Count/With Diff Urgent
Comprehensive Metabolic Panel Urgent
12/09/24 17:54
Urine Drug Abuse Screen Routine
Vitamin B1, Whole Blood [S] Routine
12/09/24 18:00
Aspirin Low Dose EC [Aspir Low (Enteric Coated)] 81 mg PO DAILY
Abnormal Lab Results
12/09/24 12/09/24
15:22 15:56
RBC 4.11 L 10^6/uL
(4.70-6.10)
MCV 101.5 H fL
(80.0-94.0)
MCH 34.5 H pg
(27.0-31.0)
Absolute Monos (auto) 0.7 H 10^3/uL
(0.1-0.6)
Monocytes % 12.0 H %
(1.7-9.3)
Creatinine 0.6 L mg/dL
(0.7-1.3)
Glucose 118 H mg/dl
(70-99)
POC Glucose 135 H mg/dl
(70-99)
12/09/24 15:56
12/09/24 15:56
Vital Signs
Initial and Last Documented VS:
Initial Vital Signs
Temp Pulse Resp BP Pulse Ox
98.2 F 88 16 146/83 97
12/09/24 15:17 12/09/24 15:17 12/09/24 15:17 12/09/24 15:17 12/09/24 15:17
Last Documented Vital Signs
Temp Pulse Resp BP Pulse Ox
98.2 F 73 18 118/75 100
12/09/24 15:17 12/09/24 17:00 12/09/24 17:00 12/09/24 17:00 12/09/24 17:00
MDM/Problems Addressed
Differential Diagnosis Includes:
CVA, TIA, complex migraine,
MDM/Problems Addressed:
Patient presents after having an episode of headache, weakness. Patient has been experiencing symptoms intermittently over the past couple days. They seem to be worse this morning with his sister was interacting with him. Patient had a CVA few
years ago and sister was concerned this may be occurring again. Patient's evaluation shows a nonfocal neurologic exam here in the emergency room. During the period of evaluation he became quite inpatient demanding to be discharged. Labs and CT
here did not show any acute abnormality. Patient was evaluated by neurology. Did discuss hospitalization for monitoring and further evaluation. However patient states he has a neurologist that he sees as an outpatient and would prefer to
follow-up with them.
*Radiology
Radiology exam reviewed: radiology read reviewed
*Pulse Oximetry
Patient hypoxic: no
*EKG
Interpretation: normal
Heart Rate: 74
Rate: normal
Rhythm: sinus
Borger: normal axis
Interval: normal interval
QRS Pattern: normal QRS
Ischemia: no ischemia
*Online Content Coordinator Interpretation
Rate: normal
Interpretation: normal
Rhythm: sinus
*Critical Care Note
Total Time (30-74mins, 75-104mins- exclusive of procedures): Not Applicable
ED Attending Note
-
Portions of this chart may have been created with voice recognition software.� Occasional wrong word or��sound alike� substitutions may have occurred due to the inherent limitations of voice recognition software.
Discharge Plan
Departure
Patient Disposition: Home (Routine Discharge)
Date of Disposition: 12/09/24
Time of Disposition: 17:07
Patient with high blood pressure during this ER visit?: Yes
Condition: Good
Discharge Problem:
Complicated migraine
Instructions: Transient Ischemic Attack (DC), Migraine in adults
Prescriptions:
No Action
atorvastatin 80 mg Tablet
80 mg PO QPM
acetaminophen [Tylenol Extra Strength] 500 mg Tablet
500 mg PO DAILYPRN PRN (Reason: mild pain)
alprazolam 0.5 mg Tablet
0.5 mg PO BID PRN (Reason: anxiety)
Patient Comments:
10/12/2023, pt. filled this med. on 09/25/2023 for 60 tablets according to PDMP.
paroxetine HCl 20 mg Tablet
20 mg PO DAILY
Lupron Depot (6 Month) 45 mg Syringe Kit
45 mg IM [id number]
iron
1 tab PO DAILY
pantoprazole 40 mg Tablet,Delayed Release (Dr/Ec)
40 mg PO DAILY Qty: 30 0RF
aspirin [Children's Aspirin] 81 mg Tablet,Chewable
81 mg PO DAILY Qty: 0 0RF
amlodipine 5 mg Tablet
5 mg PO HS Qty: 0 0RF
Referrals:
Pete Buck MD [Active] -
UNKNOWN - PT DOES,NOT KNOW [Unknown Provider] -
Activity Restrictions/Additional Instructions:
Make sure you take a baby aspirin every day. Call Dr. Buck ([facility]) office Thursday morning. Return for any concerns.
Interventions
Interventions:
*Risk Screen - Suicide Last Done: 12/09/24 15:19
*General Assessment Last Done: 12/09/24 15:25
*Neglect/Abuse Screening Last Done: 12/09/24 15:19
*ED- Fall Risk Assessment Last Done: 12/09/24 16:05
*ED COVID-19 Vaccine History Last Done: 12/09/24 15:25
*Nursing Disposition Last Done: 12/09/24 17:29
ED- Cardiac Assessment Last Done: 12/09/24 15:58
ED- Neurological Assessment Last Done: 12/09/24 15:58
ED- Pulmonary Assessment Last Done: 12/09/24 15:58
ED Swallowing Screen Last Done: 12/09/24 16:04
Discharge Date and Time
Discharge Date/Time: 12/09/24 17:32
Print Language: [facility]
[2024-12-09 16:00] VITALS: BP 112/76
[2024-12-09 16:10] LABS: % Basophils 0.9 % (0-2); % Eosinophils 1.5 % (0-6); % Immature Granulocytes 0.5 % (0-0.5); % Lymphocytes 22.3 % (20.5-51.1); % Neutrophils 62.8 % (42.2-75.2); Absolute Basophils 0.1 10^3/uL (0-0.2); Absolute Eosinophils 0.1 10^3/uL (0-0.7); Absolute Lymphocytes 1.3 10^3/uL (1.2-3.4); Absolute Monocytes 0.7 10^3/uL (0.1-0.6); Absolute Neutrophils 3.7 10^3/uL (1.4-6.5); Hematocrit 41.7 % (39.0-52.0); Hemoglobin 14.2 g/dL (13.0-18.0); Mean Corp Hgb Conc. 34.1 g/dL (33.0-37.0); Mean Corpuscular Hgb 34.5 pg (27.0-31.0); Mean Corpuscular Volume 101.5 fL (80.0-94.0); Mean Platelet Volume 9.2 fL (7.4-10.4); Nucleated Red Blood Cells % 0 % (-); Platelet Count 195 10^3/uL (130-400); Red Blood Cell Count 4.11 10^6/uL (4.70-6.10); White Blood Cell Count 5.8 10^3/uL (4.8-10.8)
[2024-12-09 16:29] LABS: ALT (SGPT) 44 U/L (0-50); AST (SGOT) 33 U/L (17-59); Alkaline Phosphatase 85 U/L (38-126); Blood Urea Nitrogen 13 mg/dl (9-20); Calcium 9.3 mg/dl (8.4-10.2); Carbon Dioxide 26 mmol/L (22-30); Chloride 105 mmol/L (98-107); Estimated Creatinine Clearance > 125 ml/min; Glucose 118 mg/dl (70-99); Potassium 4.4 mmol/L (3.5-5.1); Sodium 144 mmol/L (135-145); Total Bilirubin 0.5 mg/dl (0.2-1.3); Total Protein 7.2 g/dl (6.3-8.2); eGFR > 60.00
[2024-12-09 17:00] VITALS: BP 118/75
--- NOTE | 2024-12-09 17:18 | CON.NEURO ---
Consultation
Order
Date of Consultation: 12/09/24
Requesting Provider:
Reason for Consult: Stroke alert
Called in at: 15:22
Neurology Consultation Note.
HPI: This is a 69-year-old man who presented to [facility] on 12/09/2024 with transient change in speech. According to patient's sister around 2 PM today Mr. Hinds speech became slurred and incomprehensible. This change in speech
persisted until arrival at the hospital. He also was noted to have worsening on his balance since the morning.
Mr. Bartlett has history of left HERPETOLOGY TEACHER territory stroke in settings of [employer] in 2020. He has had right visual field deficits, imbalance and cognitive deficits since. Patient has not been driving or administering his medications independently
since the stroke.
ER VS: 146/83-154/93, 88, afebrile.
EKG:NSR, QTc Int : 455 ms WBCs, platelets.
PDMP:Alprazolam 0.5 Mg 60 tablets filled in on 10/13/2024, 11/12/2024
Labs: Glucose�118, normal sodium, creatinine,
CT head wo contrast- chronic left internal capsule infarct
PMH: Cryptogenic L HERPETOLOGY TEACHER stroke in settings of [employer] (2020), migraine without aura, orthostatic hypotension, prostate cancer, HTN, DLP, PTSD, RENETTA, nephrolithiasis, vitamin B12 deficiency, RLS
PSH: Prostatectomy, LINQ 02/2021, appendectomy, gastric bypass; left ring to small finger cross-finger flap with full-thickness skin graft from medial elbow to dorsal left ring finger donor site; left small finger flexor tendon repair
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
All:NKDA
ROS: Constitutional: Negative. Negative for chills, fever and unexpected weight change.
HENT: Negative for ear pain, hearing loss, tinnitus and trouble swallowing.
Eyes: Positive for chronic visual disturbances
Respiratory: Negative for cough, choking and shortness of breath.
Cardiovascular: Negative for chest pain, palpitations and leg swelling.
Gastrointestinal: Negative for abdominal pain and vomiting.
Endocrine: Negative. Negative for cold intolerance.
Genitourinary: Negative for dysuria, flank pain and urgency.
Musculoskeletal: Negative for back pain, gait problem, neck pain and neck stiffness.
Skin: Negative for rash.
Allergic/Immunologic: Negative. Negative for immunocompromised state.
Neurological: positive for headache, transient dysarthria, imbalance
Psychiatric/Behavioral: Positive for chronic cognitive deficits
General: Well developed. In no acute distress.
Cardio: Regular rate and rhythm without murmur. Extremities are without cyanosis or edema.
Neuro:
Mental Status: Alert, oriented to person, place. Impaired attention and preserved comprehension. Follows simple requests consistently. Nonfluent. No hemineglect.
Cranial Nerves: Pupils are equally round. EOMs full. Right homonymous hemianopsia no ptosis. No nystagmus. V1-V3 intact to light touch and pinprick bilaterally, symmetric. Face symmetric. Normal hearing AU. The palate elevated well. SCMs
and traps 5/5. Tongue midline. No dysarthria.
Motor: No pronator or leg drift.
Reflexes: Positive grasp bilaterally
Sensory: No extinction to DSS
Coordination: No dysmetria or tremor.
Gait: deferred
Assessment and Plan:
I. TIA versus toxic encephalopathy
II. Chronic left HERPETOLOGY TEACHER territory stroke
III. Chronic vascular encephalopathy
IV. Chronic migraine without aura
-Continue Telemetry monitoring
-Avoid medications known to cause headache as a side effect (paroxetine is known to cause headache up to 27% of treated patients)
-Continue aspirin 81 mg once a day
-Please obtain brain MRI without renetta
-Urine tox, thiamine level, vitamin B12 level, TFTs
-PT.
-DVT prophylaxis.
I personally reviewed all radiology and labs along with past medical records pertinent to current medical problems. Total time spent in patient care is 60 minutes.
Thank you for allowing us to participate in the care of this patient. We will continue to follow. Please do not hesitate to contact us with any questions or concerns.
Subjective/Objective
Subjective Data
Date of Service: December 09, 2024
Objective Data
Vital Signs
Temp Pulse Resp BP Pulse Ox
36.8 C 73 18 118/75 100
12/09/24 15:17 12/09/24 17:00 12/09/24 17:00 12/09/24 17:00 12/09/24 17:00
Lab Results
12/09/24 15:56
12/09/24 15:56
Sodium 144 mmol/L (135-145) 12/09/24 15:56
Potassium 4.4 mmol/L (3.5-5.1) 12/09/24 15:56
BUN 13 mg/dl (9-20) 12/09/24 15:56
Glucose 118 mg/dl (70-99) H 12/09/24 15:56
Calcium 9.3 mg/dl (8.4-10.2) 12/09/24 15:56
Patient Allergies
No Known Allergies Allergy (Verified 10/12/23 07:46)
Medications
-
Home Medications
�Medication �Instructions �Recorded
acetaminophen 500 mg tablet 500 mg PO DAILYPRN PRN mild pain 10/12/23
(Tylenol Extra Strength)
alprazolam 0.5 mg tablet 0.5 mg PO BID PRN anxiety 10/12/23
atorvastatin 80 mg tablet 80 mg PO QPM High Cholesterol 10/12/23
iron 1 tab PO DAILY Supplement 10/12/23
leuprolide acetate (6 month) 45 mg 45 mg IM [id number] Hormonal Agent 10/12/23
intramuscular syringe kit (Lupron
Depot)
paroxetine HCl 20 mg tablet 20 mg PO DAILY Depression 10/12/23
amlodipine 5 mg tablet 5 mg PO HS Blood Pressure #0 tabs 10/14/23
aspirin 81 mg chewable tablet 81 mg PO DAILY Blood clot 10/14/23
(Children's Aspirin) prevention/tx #0 tabs
pantoprazole 40 mg tablet,delayed 40 mg PO DAILY Gastrointestinal 10/14/23
release issue #30 tabs
Vital Signs and Labs
-
Vital Signs and Labs:
Vital Signs
Temp Pulse Resp BP Pulse Ox
36.8 C 73 18 118/75 100
12/09/24 15:17 12/09/24 17:00 12/09/24 17:00 12/09/24 17:00 12/09/24 17:00
Lab Results
12/09/24 15:56
12/09/24 15:56
Sodium 144 mmol/L (135-145) 12/09/24 15:56
Potassium 4.4 mmol/L (3.5-5.1) 12/09/24 15:56
BUN 13 mg/dl (9-20) 12/09/24 15:56
Glucose 118 mg/dl (70-99) H 12/09/24 15:56
Calcium 9.3 mg/dl (8.4-10.2) 12/09/24 15:56
Home Medications
-
Home Medications
acetaminophen 500 mg tablet (Tylenol Extra Strength) 500 mg PO DAILYPRN PRN mild pain 10/12/23
alprazolam 0.5 mg tablet 0.5 mg PO BID PRN anxiety 10/12/23
atorvastatin 80 mg tablet 80 mg PO QPM High Cholesterol 10/12/23
iron 1 tab PO DAILY Supplement 10/12/23
leuprolide acetate (6 month) 45 mg intramuscular syringe kit (Lupron Depot) 45 mg IM [id number] Hormonal Agent 10/12/23
paroxetine HCl 20 mg tablet 20 mg PO DAILY Depression 10/12/23
amlodipine 5 mg tablet 5 mg PO HS Blood Pressure #0 tabs 10/14/23
aspirin 81 mg chewable tablet (Children's Aspirin) 81 mg PO DAILY Blood clot prevention/tx #0 tabs 10/14/23
pantoprazole 40 mg tablet,delayed release 40 mg PO DAILY Gastrointestinal issue #30 tabs 10/14/23
== END 2024-12-09 17:32 | disposition home or self-care (01) ==
LOC: EMR 15:12
PROVIDERS: EMERGENCY PHYSICIAN Emergency Medicine; FAMILY PHYSICIAN Nurse Practitioner
DX: G43.E09 Chronic migraine with aura, not intractable, without status migrainosus (principal); R29.810 Facial weakness; R53.1 Weakness; F43.10 Post-traumatic stress disorder, unspecified; Z79.82 Long term (current) use of aspirin; Z86.73 Personal history of transient ischemic attack (TIA), and cerebral infarction without residual deficits; Z87.442 Personal history of urinary calculi; Z87.891 Personal history of nicotine dependence; Z90.49 Acquired absence of other specified parts of digestive tract; Z90.79 Acquired absence of other genital organ(s); Z98.84 Bariatric surgery status
CPT/HCPCS: 99284; 70450; 70496; 70498; 80053; 82962; 85025; 93005; Q9967